=== PATIENT | female | born 1990 | race Two or more races ===

== ENCOUNTER → 2021-04-13 | Outpatient (CLI) | payer OTHER ==
[~2021-04-13] MED LIST: MIRALAX17 GM PO; OSTERA TABLET1 EACH PO; PEPCID AC20 MG PO; PRENATAL CAPLE1 EAC1 PO; PROBIOTIC1 EACH PO; RELTONE200 MG PO; ZINC50 M1 PO
== END | disposition home or self-care (01) ==
LOC: NST 14:48
PROVIDERS: ATTEND Obstetrics & Gynecology
DX: Z34.83 Encounter for supervision of other normal pregnancy, third trimester (principal)

== ENCOUNTER 2021-04-20 09:01 | Outpatient (CLI) | payer OTHER | END 2021-04-20 10:01 | disposition home or self-care (01) | LOC: NST 09:01 | PROVIDERS: ATTEND Obstetrics & Gynecology | DX: Z34.83 Encounter for supervision of other normal pregnancy, third trimester (principal) ==

== ENCOUNTER 2021-04-26 09:30 | Inpatient (IN) | payer OTHER ==
[~2021-04-26] VITALS: Ht 152.4 cm; Wt 56.2 kg
[2021-04-28] MEDS ORDERED: PRENATAL CAPLE1 EAC1 PO (08:24)
[2021-04-28] MEDS ORDERED: OSTERA TABLET1 EACH PO (08:24)
[2021-04-28] MEDS ORDERED: ZINC50 M1 PO (08:25)
[2021-04-28] MEDS ORDERED: PEPCID AC20 MG PO (08:26)
[2021-04-28] MEDS ORDERED: PROBIOTIC1 EACH PO (08:26)
[2021-04-28] MEDS ORDERED: MIRALAX17 GM PO (08:27)
[2021-04-28] MEDS ORDERED: RELTONE200 MG PO (08:28)
== END 2021-05-01 12:10 | disposition home or self-care (01) | DRG 786 ==
LOC: O/R 04-28 07:55 → OB/GYN 04-28 09:30 → SURG-SUITE 04-29 14:11
PROVIDERS: ADMIT Obstetrics & Gynecology; ATTEND Obstetrics & Gynecology
PROC: 4A1HXFZ Monitoring of Products of Conception, Cardiac Rhythm, External Approach (ICD-10-PCS; 2021-04-28)
PROC: 10D00Z1 Extraction of Products of Conception, Low, Open Approach (ICD-10-PCS; principal; 2021-04-28 12:00)
DX: O65.5 Obstructed labor due to abnormality of maternal pelvic organs (principal); K83.1 Obstruction of bile duct; O26.62 Liver and biliary tract disorders in childbirth; O34.13 Maternal care for benign tumor of corpus uteri, third trimester; O64.8XX0 Obstructed labor due to other malposition and malpresentation, not applicable or unspecified; Z3A.36 36 weeks gestation of pregnancy; Z37.0 Single live birth